=== PATIENT | female | born 1995 | race American Indian/Alaskan Native ===

== ENCOUNTER 2017-07-20 13:19 | Emergency (ER) | payer MEDICAID ==
[2017-07-20 14:59] VITALS: BMI 24.8
[2017-07-20 15:03] VITALS: BP 121/81; PULSE 89; RESP 17; TEMP 98.7; O2SAT 96
--- NOTE | 2017-07-20 15:29 | ED PDOC ---
Arrival/HPI - General Chief Complaint: Upper Extremity Problem/Injury Time Seen by Provider: 07/20/17 15:17 Historian: Patient - History of Present Illness Narrative History of Present Illness (Text): 07/20/17 15:26 22-year-old female presents today with right shoulder pain. The patient states 3 days ago she was doing a dance and felt as if the shoulder popped out of place and then popped back into place. Patient states she thought the pain would improve but it is not improving. Patient states she has pain with range of motion of the shoulder. No medications have been taken for pain at home. Patient denies numbness weakness or tingling in the extremity. No chest pain or shortness of breath. Patient denies any recent fall. No other complaints Past Medical History - Provider Review Nursing Documentation Reviewed: Yes - Travel History Have you recently traveled outside [place] w/in the past 3 mons?: No - Infectious Disease Hx of Infectious Diseases: None - Psychiatric Hx Substance Use: Yes - Anesthesia Hx Anesthesia: Yes Family/Social History - Physician Review Nursing Documentation Reviewed: Yes Family/Social History: Unknown Family HX Smoking Status: Never Smoked Hx Alcohol Use: No Hx Substance Use: Yes Substance used: marijuana Allergies/Home Meds Allergies/Adverse Reactions: Allergies No Known Allergies Allergy (Verified 07/20/17 14:58) Review of Systems - Review of Systems Constitutional: absent: Fatigue, Fevers Respiratory: absent: SOB, Cough Cardiovascular: absent: Chest Pain, Palpitations Gastrointestinal: absent: Abdominal Pain, Nausea, Vomiting Musculoskeletal: Arthralgias (right shoulder pain). absent: Back Pain, Neck Pain Skin: absent: Rash, Pruritis Psychiatric: absent: Anxiety, Depression Physical Exam Vital Signs Reviewed: Yes Vital Signs Temp Pulse Resp BP Pulse Ox 07/20/17 14:59 98.7 F 89 17 121/81 96 Temperature: Afebrile Blood Pressure: Normal Pulse: Regular Respiratory Rate: Normal Appearance: Positive for: Well-Appearing, Non-Toxic, Comfortable Pain Distress: None Mental Status: Positive for: Alert and Oriented X 3 - Systems Exam Head: Present: Atraumatic Mouth: Present: Moist Mucous Membranes Neck: Present: Normal Range of Motion Respiratory/Chest: Present: Clear to Auscultation, Good Air Exchange. No: Respiratory Distress, Accessory Muscle Use Cardiovascular: Present: Regular Rate and Rhythm Back: Present: Normal Inspection. No: Midline Tenderness, Paraspinal Tenderness Upper Extremity: Present: NORMAL PULSES, Tenderness (right shoulder; + ttp over anterior and lateral aspect of the shoulder; Limited abduction with active ROM. full Passive ROM. sensation and distal pulses intact; cap refill <2. ), Neurovascularly Intact, Capillary Refill < 2s. No: Normal ROM, Swelling, Erythema, Deformity Neurological: Present: GCS=15, Speech Normal Skin: Present: Warm, Dry, Normal Color. No: Rashes Psychiatric: Present: Alert, Oriented x 3 Medical Decision Making ED Course and Treatment: 07/20/17 15:31 Patient nontoxic well-appearing in no distress with stable vital signs X-rays of the right shoulder; no fracture toradol IM I discussed all results with patient advised to followup with the orthopedist for the next 2 days. Return if symptoms worsen persist or new symptoms develop i advised the patient that although the xrays show no fracture; there is still a possibility for ligamentous or tendon injury the patient must see the orthopedist for further evaluation. Patient verbalizes understanding of discharge instructions and need for immediate followup. all aspects of this case were discussed the attending of record. Impression: shoulder pain Motrin every 6 hours as needed for pain Flexeril; 1 tablet every 8 hours as needed for muscle spasms; may cause drowsiness. Rest, ice Followup with the orthopedist within the next 2 days Followup with primary care physician within the next 2 days Return if any other concerning symptoms develop - RAD Interpretation Radiology Orders: 07/20/17 15:25 SHOULDER RIGHT [RAD] Stat - Medication Orders Current Medication Orders: Discontinued Medications Ketorolac Tromethamine (Toradol) 30 mg IM STAT STA Stop: 07/20/17 15:26 Last Admin: 07/20/17 15:39 Dose: 30 mg MAR Pain Assessment Document 07/20/17 15:39 OCS (Rec: 07/20/17 15:39 OCS [facility] [id number] Pain Reassessment Is this a pain reassessment? Yes Sleep Is patient sleeping during reassessment? No Presence of Pain Presence of Pain Yes Pain Scale Used Pain Scale Used Numeric Location Left, Right or Bilateral Right Pain Location Body Site Shoulder Description Description Constant Intensity of Pain at present 8 Aggravating Factors ADL's Changing Position Exercise/Activity IM Administration Charges Document 07/20/17 15:39 OCS (Rec: 07/20/17 15:39 OCS [id number]) Injection Site MAR Injection Site Right Deltoid Charges for Administration # of IM Administrations 1 Disposition/Present on Arrival - Present on Arrival Any Indicators Present on Arrival: No History of DVT/PE: No History of Uncontrolled Diabetes: No Urinary Catheter: No History of Decub. Ulcer: No History Surgical Site Infection Following: None - Disposition Have Diagnosis and Disposition been Completed?: Yes Diagnosis: Shoulder pain Disposition: HOME/ ROUTINE Disposition Time: 15:50 Patient Plan: Discharge Condition: GOOD Discharge Instructions (ExitCare): Shoulder Pain (DC) Additional Instructions: Motrin every 6 hours as needed for pain Flexeril; 1 tablet every 8 hours as needed for muscle spasms; may cause drowsiness. Rest, ice Followup with the orthopedist within the next 2 days Followup with primary care physician within the next 2 days Return if any other concerning symptoms develop Prescriptions: Cyclobenzaprine [Flexeril] 5 mg PO Q8 #10 tab Ibuprofen [Motrin Tab] 400 mg PO Q6H PRN #20 tab PRN Reason: Pain, Mild (1-3) Referrals: Randell Vasquez DO [Staff Provider] - Follow up with primary [facility] [place]Outside] - Follow up with primary [facility] [place] [Outside] - Follow up with primary Carlos Love DO [Staff Provider] - Follow up with primary Forms: [employer] ([place]), WORK NOTE
--- NOTE | 2017-07-20 15:56 | RAD ---
PROCEDURE: Radiographs of the Right Shoulder HISTORY: Right shoulder pain COMPARISON: No prior. FINDINGS: BONES: Bone alignment and mineralization are normal. No acute displaced fracture or bone destruction JOINTS: Normal. Glenohumeral and acromioclavicular joints preserved. SOFT TISSUES: Normal. OTHER FINDINGS: None. IMPRESSION: No acute fracture or dislocation.
== END 2017-07-20 15:52 | disposition home or self-care (01) ==
LOC: ED 13:19
DX: M25.511 Pain in right shoulder (principal)
CPT/HCPCS: 73030; 96372; 99283; J1885

== ENCOUNTER 2017-08-12 20:41 | Emergency (ER) | payer MEDICAID ==
[2017-08-12 20:42] VITALS: BMI 24.8
[2017-08-12 21:13] VITALS: O2SAT 100
[2017-08-12] MEDS ORDERED: Naproxen 550 mg Tab PO STA (21:23)
--- NOTE | 2017-08-12 21:27 | ED PDOC ---
Arrival/HPI - General Historian: Patient - History of Present Illness Time/Duration: Other (see hpi) Quality: Aching Context: Work <Bobbi Morris - Last Filed: 08/12/17 22:39> <Scar Fernando - Last Filed: 08/12/17 23:15> - General Chief Complaint: Upper Extremity Problem/Injury Time Seen by Provider: 08/12/17 21:22 - History of Present Illness Narrative History of Present Illness (Text): 08/12/17 21:24 This 22 yo female presents to this ED c/o right shoulder pain since last night. Patient stated she works in [employer], and she lifts small boxes "all day long". Patient noted she was seen in this ED 3-4 weeks ago for similar complains. She denies skin rash, skin redness, recent trauma, weakness, or paresthesias. ( Bobbi Morris) Past Medical History - Provider Review Nursing Documentation Reviewed: Yes - Infectious Disease Hx of Infectious Diseases: None - Psychiatric Hx Substance Use: Yes - Anesthesia Hx Anesthesia: Yes <Bobbi Morris - Last Filed: 08/12/17 22:39> Family/Social History - Physician Review Nursing Documentation Reviewed: Yes Family/Social History: Other (noncontributory) Smoking Status: Never Smoked Hx Alcohol Use: No Hx Substance Use: Yes Substance used: marijuana <Bobbi Morris - Last Filed: 08/12/17 22:39> Allergies/Home Meds <Bobbi Morris - Last Filed: 08/12/17 22:39> <Scar Fernando - Last Filed: 08/12/17 23:15> Allergies/Adverse Reactions: Allergies No Known Allergies Allergy (Verified 07/20/17 14:58) Review of Systems - Review of Systems Constitutional: Normal. absent: Fatigue, Weight Change, Fevers, Night Sweats Eyes: Normal ENT: Normal Respiratory: Normal Cardiovascular: Normal Gastrointestinal: Normal Genitourinary Female: Normal Musculoskeletal: Other (right shoulder pain) Skin: Normal. absent: Rash, Cellulitis Neurological: Normal Endocrine: Normal Hemo/Lymphatic: Normal Psychiatric: Normal <Bobbi Morris P - Last Filed: 08/12/17 22:39> Physical Exam Temperature: Afebrile Blood Pressure: Normal Pulse: Regular Respiratory Rate: Normal Appearance: Positive for: Well-Appearing, Non-Toxic, Comfortable Pain Distress: None Mental Status: Positive for: Alert and Oriented X 3 - Systems Exam Head: Present: Atraumatic, Normocephalic Pupils: Present: PERRL Extroacular Muscles: Present: EOMI Conjunctiva: Present: Normal Mouth: Present: Moist Mucous Membranes Neck: Present: Normal Range of Motion, Trachea Midline. No: Meningeal Signs, MIDLINE TENDERNESS, Paraspinal Tenderness, Lymphadenopathy Back: Present: Normal Inspection. No: CVA Tenderness Upper Extremity: Present: NORMAL PULSES, Tenderness ((+) right middle deltoid is mild swollen and tender on palpation), Neurovascularly Intact, Capillary Refill < 2s. No: Cyanosis, Edema, Normal ROM (decreased ROM of right shoulder due to pain) Lower Extremity: Present: Normal Inspection, NORMAL PULSES, Normal ROM, Capillary Refill < 2 s. No: Edema Neurological: Present: GCS=15, CN II-XII Intact, Speech Normal, Motor Func Grossly Intact, Normal Sensory Function, Normal Cerebellar Funct, Gait Normal Skin: Present: Warm, Dry, Normal Color. No: Rashes Psychiatric: Present: Alert, Oriented x 3, Normal Insight, Normal Concentration <Morris,Nahim P - Last Filed: 08/12/17 22:39> Vital Signs Temp Pulse Resp BP Pulse Ox 08/12/17 21:00 97.3 F L 82 18 107/63 100 Medical Decision Making Re-evaluation Time: 22:39 Reassessment Condition: Re-examined, Improved <Azalia Morrisim P - Last Filed: 08/12/17 22:39> <Scar Fernando - Last Filed: 08/12/17 23:15> ED Course and Treatment: 08/12/17 22:39 Re-evaluation. Patient feels better. Discussed results and plan with patient who expresses understanding. All questions answered and there is agreement with the plan to discharge home with instructions. Patient stable for discharge. Return if symptoms persist or worsen (Morris,Nahim P) - RAD Interpretation Narrative RAD Interpretations (Text): 08/12/17 22:39 Shoulder x-rays: no Fx. normal soft tissue. no fb (Morris,Nahim P) Radiology Orders: 08/12/17 21:22 SHOULDER RIGHT [RAD] Stat - Medication Orders Current Medication Orders: Discontinued Medications Naproxen (Anaprox Ds) 550 mg PO STAT STA Stop: 08/12/17 21:24 Last Admin: 08/12/17 21:52 Dose: 550 mg - PA / ORTHOPEDIC CAST SPECIALIST / Resident Statement / has reviewed & agrees with the documentation as recorded. <Scar Fernando - Last Filed: 08/12/17 23:15> Disposition/Present on Arrival - Present on Arrival Any Indicators Present on Arrival: No History of DVT/PE: No History of Uncontrolled Diabetes: No Urinary Catheter: No History of Decub. Ulcer: No History Surgical Site Infection Following: None - Disposition Have Diagnosis and Disposition been Completed?: Yes Disposition Time: 22:40 Patient Plan: Discharge <Bobbi Morris - Last Filed: 08/12/17 22:39> <Scar Fernando - Last Filed: 08/12/17 23:15> - Disposition Diagnosis: Shoulder pain, right, Bursitis of right shoulder Disposition: HOME/ ROUTINE Condition: GOOD Discharge Instructions (ExitCare): Shoulder Bursitis (DC) Additional Instructions: Call private doctor for follow up visit in 1-2 days. Apply cold and warmth compress over painful area. Take medication as instructed with food. Remove arm sling at bedtime. Call orthopedist clinic if pain persist or worsen. Return to emergency if pain worsen. Avoid doing repetitive movement with right shoulder. Prescriptions: Famotidine [Pepcid] 40 mg PO DAILY #10 tablet Naproxen 500 mg PO BID PRN #14 tablet PRN Reason: Pain, Severe (8-10) Referrals: [facility] [Outside] - Follow up with primary [facility] [place] [Outside] - Follow up with primary Vito Manzanares MD [Primary Care Provider] - Follow up with primary Forms: [employer] (Bulgarian), WORK NOTE
[2017-08-12 23:20] VITALS: BP 117/62; PULSE 88; RESP 12; TEMP 97.9
--- NOTE | 2017-08-13 10:22 | RAD ---
PROCEDURE: Radiographs of the Right Shoulder HISTORY: pain r/o FB COMPARISON: No prior. FINDINGS: BONES: Normal. No fracture. JOINTS: Normal. Glenohumeral and acromioclavicular joints preserved. No osteoarthritis. SOFT TISSUES: Normal. OTHER FINDINGS: None. IMPRESSION: Normal radiographs of the right shoulder.
== END 2017-08-12 22:50 | disposition home or self-care (01) ==
LOC: ED 20:41
DX: M75.51 Bursitis of right shoulder (principal); M25.511 Pain in right shoulder